=== PATIENT | male | born 1955 | race Caucasian/White ===

== ENCOUNTER 2021-01-05 04:13 | Inpatient (IN) | payer BC ==
[2021-01-04 17:56] VITALS: BMI 27.2
[2021-01-05] MEDS ORDERED: methylPREDNISolone ACET (DEPO) 40 MG/1 ML VIAL ONE (07:42)
[2021-01-05] MEDS ORDERED: BUPIVACAINE HCL/PF 0.5% (5MG/ML) 10 ML VIAL ONE (07:43)
[2021-01-05] MEDS ORDERED: BACITRACIN 15 GM TUBE TOPICAL OINTMENT ONE (07:43)
[2021-01-05] MEDS ORDERED: THROMBIN (BOVINE) 5,000 UNIT VIAL TP ONE (07:43)
[2021-01-05] MEDS ORDERED: PROPOFOL 20 ML ONE ×17 (08:11→13:20)
[2021-01-05] MEDS ORDERED: fentaNYL CITRATE 250 MCG/5 ML VIAL ONE ×2 (08:36→10:43)
[2021-01-05] MEDS ORDERED: SUCCINYLCHOLINE CHLORIDE 200 MG/10 ML SYRINGE ONE (08:37)
[2021-01-05] MEDS ORDERED: ROCURONIUM BROMIDE 50 MG/5 ML SYRINGE ONE (08:37)
[2021-01-05] MEDS ORDERED: MIDAZOLAM HCL 2 MG/2 ML SINGLE DOSE VIAL ONE (08:37)
[2021-01-05] MEDS ORDERED: ceFAZolin SODIUM 1 GM VIAL IVPB ONE ×3 (09:01→13:37)
[2021-01-05] MEDS ORDERED: ePHEDrine SULFATE 50 MG/1 ML AMPULE ONE (10:51)
[2021-01-05] MEDS ORDERED: ONDANSETRON 4 MG/2 ML VIAL ONE (12:43)
[2021-01-05] MEDS ORDERED: ceFAZolin SODIUM 1 GM VIAL ONE ×2 (13:33→21:21)
[2021-01-05] MEDS ORDERED: ONDANSETRON 4 MG/2 ML VIAL IVPUSH PRN (14:08)
[2021-01-05] MEDS ORDERED: oxyCODONE HCL 5 MG TABLET PO PRN (14:08)
[2021-01-05] MEDS ORDERED: LACTATED RINGERS SOLUTION 1,000 ML IV SCH (14:30)
[2021-01-05] MEDS ORDERED: HYDROmorphone *PCA* 10MG/50ML DISP.SYRIN ONE (15:17)
[2021-01-05] MEDS: INSULIN SLIDING SCALE (NOVOLOG) 1 VIAL SQ SCH ×3 (17:30→21:43)
[2021-01-05] MEDS: TAMSULOSIN HCL 0.4 MG CAP PO SCH ×2 (17:45→21:54)
[2021-01-05] MEDS ORDERED: LABETALOL HCL 5 MG/1 ML (100MG/20 ML VIAL) IVPUSH ONE (18:30)
[2021-01-05] MEDS ORDERED: LABETALOL HCL 5 MG/1 ML (100MG/20 ML VIAL) ONE (18:31)
[2021-01-05] MEDS ORDERED: LABETALOL HCL 5 MG/1 ML (100MG/20 ML VIAL) IVPUSH PRN (18:34)
[2021-01-05] MEDS ORDERED: DEXTROSE 5%-WATER - 50 ML IVPB ONE (21:21)
[2021-01-05] MEDS: D5-1/2NS+20 MEQ KCL - 20 MEQ/1,000 ML INFUS.BAG IV SCH (21:33)
[2021-01-05] MEDS: diazePAM 5 MG TABLET PO SCH (21:36)
[2021-01-05] MEDS: CEFAZOLIN 1 GM in DEXTROSE 5%-WATER - 1 GM/50 ML IVPB IVPB SCH (21:36)
[2021-01-05] MEDS: DOCUSATE SODIUM 100 MG CAPSULE (FP) PO SCH (21:36)
[2021-01-05] MEDS: HYDROmorphone *PCA* 10MG/50ML DISP.SYRIN PCA SCH (21:36)
[2021-01-05] MEDS: metFORMIN HCL 500 MG TABLET (FP) PO SCH (21:37)
[2021-01-06] MEDS ORDERED: ceFAZolin SODIUM 1 GM VIAL ONE (05:40)
[2021-01-06] MEDS ORDERED: DEXTROSE 5%-WATER - 50 ML IVPB ONE (05:40)
[2021-01-06] MEDS: CEFAZOLIN 1 GM in DEXTROSE 5%-WATER - 1 GM/50 ML IVPB IVPB SCH (05:40)
[2021-01-06] MEDS: diazePAM 5 MG TABLET PO SCH ×3 (05:57→22:41)
[2021-01-06] MEDS: DOCUSATE SODIUM 100 MG CAPSULE (FP) PO SCH ×3 (05:57→22:41)
[2021-01-06] MEDS: LEVOTHYROXINE NA 50 MCG TABLET (FP) PO SCH (06:01)
[2021-01-06] MEDS: INSULIN SLIDING SCALE (NOVOLOG) 1 VIAL SQ SCH ×4 (06:01→23:36)
[2021-01-06] MEDS: metFORMIN HCL 500 MG TABLET (FP) PO SCH ×2 (06:01→16:21)
[2021-01-06] MEDS: D5-1/2NS+20 MEQ KCL - 20 MEQ/1,000 ML INFUS.BAG IV SCH ×2 (06:54→14:26)
[2021-01-06] MEDS ORDERED: TAMSULOSIN HCL 0.4 MG CAP PO SCH (08:30)
[2021-01-06] MEDS ORDERED: PT OWN MED DRAWER 7, Y5N ONE (09:54)
[2021-01-06] MEDS: LISINOPRIL 10 MG TABLET PO SCH (10:02)
[2021-01-06] MEDS: FENOFIBRIC ACID 135 MG CAP PO SCH (10:03)
[2021-01-06] MEDS: HYDROmorphone *PCA* 10MG/50ML DISP.SYRIN PCA SCH (16:19)
[2021-01-06] MEDS: TAMSULOSIN HCL 0.4 MG CAP PO SCH (16:22)
[2021-01-06] MEDS ORDERED: PCA PUMP NR ONE (18:17)
[2021-01-07] MEDS: D5-1/2NS+20 MEQ KCL - 20 MEQ/1,000 ML INFUS.BAG IV SCH ×2 (00:39→14:32)
[2021-01-07] MEDS: metFORMIN HCL 500 MG TABLET (FP) PO SCH ×2 (06:36→16:38)
[2021-01-07] MEDS: LEVOTHYROXINE NA 50 MCG TABLET (FP) PO SCH (06:36)
[2021-01-07] MEDS: DOCUSATE SODIUM 100 MG CAPSULE (FP) PO SCH ×3 (06:36→21:24)
[2021-01-07] MEDS: diazePAM 5 MG TABLET PO SCH ×4 (06:36→21:24)
[2021-01-07] MEDS: INSULIN SLIDING SCALE (NOVOLOG) 1 VIAL SQ SCH ×4 (06:47→21:34)
[2021-01-07] MEDS ORDERED: DEXAMETHASONE SOD PHOSPHATE 4 MG/1 ML VIAL IVPUSH ONE (07:22)
[2021-01-07] MEDS ORDERED: PT OWN MED DRAWER 7, Y5N ONE ×2 (09:06→16:29)
[2021-01-07] MEDS: FENOFIBRIC ACID 135 MG CAP PO SCH (09:22)
[2021-01-07] MEDS: LISINOPRIL 10 MG TABLET PO SCH (09:22)
[2021-01-07] MEDS ORDERED: INSULIN (NOVOLOG) ASPART 100 UNITS/ML 10ML VIAL ONE (11:21)
[2021-01-07] MEDS: HYDROmorphone *PCA* 10MG/50ML DISP.SYRIN PCA SCH (15:20)
[2021-01-07] MEDS: TAMSULOSIN HCL 0.4 MG CAP PO SCH (16:38)
[2021-01-08] MEDS: LEVOTHYROXINE NA 50 MCG TABLET (FP) PO SCH (07:06)
[2021-01-08] MEDS: metFORMIN HCL 500 MG TABLET (FP) PO SCH ×2 (07:06→16:37)
[2021-01-08] MEDS: DOCUSATE SODIUM 100 MG CAPSULE (FP) PO SCH ×3 (07:06→21:23)
[2021-01-08] MEDS: diazePAM 5 MG TABLET PO SCH ×3 (07:07→21:22)
[2021-01-08] MEDS: INSULIN SLIDING SCALE (NOVOLOG) 1 VIAL SQ SCH ×4 (07:10→21:26)
[2021-01-08] MEDS ORDERED: PT OWN MED DRAWER 7, Y5N ONE (09:15)
[2021-01-08] MEDS: LISINOPRIL 10 MG TABLET PO SCH (09:22)
[2021-01-08] MEDS: FENOFIBRIC ACID 135 MG CAP PO SCH (09:22)
[2021-01-08] MEDS: TAMSULOSIN HCL 0.4 MG CAP PO SCH (16:37)
[2021-01-08] MEDS: oxyCODONE HCL 5 MG TABLET PO PRN (21:22)
[2021-01-09] MEDS: LEVOTHYROXINE NA 50 MCG TABLET (FP) PO SCH (06:53)
[2021-01-09] MEDS: DOCUSATE SODIUM 100 MG CAPSULE (FP) PO SCH ×3 (06:53→21:43)
[2021-01-09] MEDS: diazePAM 5 MG TABLET PO SCH ×3 (06:53→21:43)
[2021-01-09] MEDS: metFORMIN HCL 500 MG TABLET (FP) PO SCH ×2 (06:53→16:27)
[2021-01-09] MEDS: INSULIN SLIDING SCALE (NOVOLOG) 1 VIAL SQ SCH ×4 (06:54→21:43)
[2021-01-09 07:43] LABS: BASO % 0.7 % (0-2.0); EOS % 4.1 % (0-4.5); HEMATOCRIT 42.5 % (35.4-49); HEMOGLOBIN 14.9 GM/dL (11.7-16.9); LYMPH % 23.1 % (8-40); MCH 31.8 pg (25.7-33.7); MCHC 35.1 g/dl (32.0-35.9); MEAN CELL VOLUME 90.6 fl (80-96); MEAN PLT VOLUME 9.2 fl (7.5-11.1); MONO % 7.4 % (3.8-10.2); NEUT % 64.7 % (42.8-82.8); PLATELET COUNT 255 10^3/uL (134-434); RDW 13.9 % (11.9-15.9); WHITE BLOOD COUNT 8.2 K/mm3 (4.0-10.0)
[2021-01-09 08:15] LABS: BLOOD UREA NITROGEN 22.8 mg/dL (7-18)
[2021-01-09] MEDS: LISINOPRIL 10 MG TABLET PO SCH (09:26)
[2021-01-09] MEDS: FENOFIBRIC ACID 135 MG CAP PO SCH (09:26)
[2021-01-09] MEDS: oxyCODONE HCL 5 MG TABLET PO PRN (09:30)
[2021-01-09] MEDS ORDERED: MAGNESIUM CITRATE 300 ML BOTTLE PO PRN (10:06)
[2021-01-09] MEDS: TAMSULOSIN HCL 0.4 MG CAP PO SCH (16:27)
[2021-01-09] MEDS ORDERED: INSULIN (NOVOLOG) ASPART 100 UNITS/ML 10ML VIAL ONE (21:14)
[2021-01-10] MEDS: DOCUSATE SODIUM 100 MG CAPSULE (FP) PO SCH ×3 (06:06→21:35)
[2021-01-10] MEDS: INSULIN SLIDING SCALE (NOVOLOG) 1 VIAL SQ SCH ×4 (06:06→21:35)
[2021-01-10] MEDS: diazePAM 5 MG TABLET PO SCH ×3 (06:06→21:35)
[2021-01-10] MEDS: LEVOTHYROXINE NA 50 MCG TABLET (FP) PO SCH (06:06)
[2021-01-10] MEDS: metFORMIN HCL 500 MG TABLET (FP) PO SCH ×2 (06:06→16:39)
[2021-01-10] MEDS ORDERED: PT OWN MED DRAWER 7, Y5N ONE (09:31)
[2021-01-10] MEDS: FENOFIBRIC ACID 135 MG CAP PO SCH (09:36)
[2021-01-10] MEDS: LISINOPRIL 10 MG TABLET PO SCH (09:36)
[2021-01-10] MEDS ORDERED: INSULIN (NOVOLOG) ASPART 100 UNITS/ML 10ML VIAL ONE ×2 (10:49→21:30)
[2021-01-10] MEDS ORDERED: BISACODYL 5 MG TABLET.DR (FP) PO ONE (12:43)
[2021-01-10] MEDS: TAMSULOSIN HCL 0.4 MG CAP PO SCH (16:39)
[2021-01-11] MEDS: diazePAM 5 MG TABLET PO SCH (06:13)
[2021-01-11] MEDS: DOCUSATE SODIUM 100 MG CAPSULE (FP) PO SCH (06:14)
[2021-01-11] MEDS: LEVOTHYROXINE NA 50 MCG TABLET (FP) PO SCH (06:14)
[2021-01-11] MEDS: metFORMIN HCL 500 MG TABLET (FP) PO SCH (06:15)
[2021-01-11] MEDS: INSULIN SLIDING SCALE (NOVOLOG) 1 VIAL SQ SCH (06:15)
[2021-01-11] MEDS ORDERED: PT OWN MED DRAWER 7, Y5N ONE (09:16)
[2021-01-11] MEDS: LISINOPRIL 10 MG TABLET PO SCH (09:29)
[2021-01-11] MEDS: FENOFIBRIC ACID 135 MG CAP PO SCH (09:29)
[2021-01-11 10:17] VITALS: BP 110/70; PULSE 80; TEMP 97
== END 2021-01-11 11:55 | disposition home or self-care (01) | DRG 472 ==
LOC: J2C 04:13 → J6S 20:05
PROVIDERS: ADMIT Neurological Surgery; ATTEND Neurological Surgery
PROC: 01N10ZZ Release Cervical Nerve, Open Approach (ICD-10-PCS; 2021-01-05)
PROC: 0RB30ZZ Excision of Cervical Vertebral Disc, Open Approach (ICD-10-PCS; 2021-01-05)
PROC: 4A11X4G Monitoring of Peripheral Nervous Electrical Activity, Intraoperative, External Approach (ICD-10-PCS; 2021-01-05)
PROC: 0RG20A0 Fusion of 2 or more Cervical Vertebral Joints with Interbody Fusion Device, Anterior Approach, Anterior Column, Open Approach (ICD-10-PCS; principal; 2021-01-05 08:00)
DX: M48.02 Spinal stenosis, cervical region (principal); M50.00 Cervical disc disorder with myelopathy, unspecified cervical region; M25.78 Osteophyte, vertebrae; I10 Essential (primary) hypertension; E11.9 Type 2 diabetes mellitus without complications
CPT/HCPCS: 36415; 72050-TC-FY; 80051; 82540; 82962; 84520; 85025; 86850; 86900; 86901; 86922; 94010; 94760; 97116-GP; 97162-GP

== ENCOUNTER 2022-01-30 11:25 | Emergency (ER) | payer OTHER ==
[2022-01-30 11:40] VITALS: TEMP 98; BMI 30.8
[2022-01-30] MEDS ORDERED: METOCLOPRAMIDE HCL INJECTION 10 MG/2 ML VIAL IVPB ONE (12:25)
[2022-01-30] MEDS ORDERED: ACETAMINOPHEN 1000 MG/100 ML BAG IVPB ONE (12:25)
[2022-01-30] MEDS ORDERED: METOCLOPRAMIDE HCL INJECTION 10 MG/2 ML VIAL ONE (12:28)
[2022-01-30] MEDS ORDERED: ACETAMINOPHEN INJECTION 100 ML IVPB ONE (12:28)
[2022-01-30 13:00] LABS: BASO % 0.7 % (0-2.0); EOS % 3.6 % (0-4.5); HEMATOCRIT 42.4 % (35.4-49); HEMOGLOBIN 14.9 GM/dL (11.7-16.9); LYMPH % 19.8 % (8-40); MCH 31.5 pg (25.7-33.7); MCHC 35.2 g/dl (32.0-35.9); MEAN CELL VOLUME 89.5 fl (80-96); MEAN PLT VOLUME 9.1 fl (7.5-11.1); MONO % 7.2 % (3.8-10.2); NEUT % 68.7 % (42.8-82.8); PLATELET COUNT 219 10^3/uL (134-434); RBC 4.73 M/mm3 (4.00-5.60); WHITE BLOOD COUNT 6.6 K/mm3 (4.0-10.0)
[2022-01-30 13:38] LABS: BLOOD UREA NITROGEN 22.4 mg/dL (7-18); CALCIUM 8.9 mg/dL (8.5-10.1)
[2022-01-30 13:39] LABS: ALBUMIN 3.6 g/dl (3.4-5.0); MAGNESIUM 1.5 mg/dL (1.8-2.4)
[2022-01-30 13:41] LABS: PHOSPHOROUS 2.6 mg/dL (2.5-4.9)
[2022-01-30 13:43] LABS: BILIRUBIN,TOTAL 0.3 mg/dL (0.2-1); TOT PROT 6.4 g/dl (6.4-8.2)
[2022-01-30] MEDS ORDERED: MAGNESIUM SULF 50% (8.12 MEQ/2 ML-1 GM VIAL) IVPB ONE (13:43)
[2022-01-30] MEDS ORDERED: MAGNESIUM 1GM/D5W - 1 GM/100 ML IVPB IVPB ONE (14:13)
[2022-01-30 15:31] VITALS: BP 179/99; PULSE 63; RESP 15
== END 2022-01-30 15:42 | disposition home or self-care (01) ==
LOC: JER 11:25
PROC: 3E0333Z Introduction of Anti-inflammatory into Peripheral Vein, Percutaneous Approach (ICD-10-PCS; principal; 2022-01-30)
PROC: 3E033GC Introduction of Other Therapeutic Substance into Peripheral Vein, Percutaneous Approach (ICD-10-PCS; 2022-01-30)
PROC: 3E033GC Introduction of Other Therapeutic Substance into Peripheral Vein, Percutaneous Approach (ICD-10-PCS; 2022-01-30)
DX: R51.9 Headache, unspecified (principal); R07.9 Chest pain, unspecified; I10 Essential (primary) hypertension
CPT/HCPCS: 36415; 70450-TC; 71046-TC-FY; 80053; 83735; 84100; 84443; 84484; 85025; 93005; 93010; 99285-25

== ENCOUNTER 2022-08-13 21:51 | Observation (INO) | payer OTHER ==
[2022-08-13] MEDS ORDERED: ASPIRIN 325 MG TABLET PO ONE (23:08)
[2022-08-13] MEDS ORDERED: ASPIRIN 325 MG TABLET ONE (23:17)
[2022-08-13 23:35] LABS: BASO % 0.7 % (0-2.0); EOS % 2.7 % (0-4.5); HEMATOCRIT 41.3 % (35.4-49); HEMOGLOBIN 14.7 GM/dL (11.7-16.9); LYMPH % 13.2 % (8-40); MCH 30.9 pg (25.7-33.7); MCHC 35.6 g/dl (32.0-35.9); MEAN CELL VOLUME 86.9 fl (80-96); MEAN PLT VOLUME 8.7 fl (7.5-11.1); MONO % 6.6 % (3.8-10.2); NEUT % 76.8 % (42.8-82.8); PLATELET COUNT 225 10^3/uL (134-434); RBC 4.76 M/mm3 (4.00-5.60); RDW 14.3 % (11.9-15.9); WHITE BLOOD COUNT 9.4 K/mm3 (4.0-10.0)
[2022-08-13 23:43] LABS: INR 1.08 (0.83-1.09); PROTHROMBIN TIME (PATIENT) 12.5 SEC (9.7-13.0)
[2022-08-13 23:45] LABS: ACTIVATED PTT 29.4 SECONDS (25.2-36.5)
[2022-08-14 00:09] LABS: CALCIUM 9.1 mg/dL (8.5-10.1)
[2022-08-14 00:10] LABS: ALBUMIN 3.6 g/dl (3.4-5.0); BLOOD UREA NITROGEN 30.2 mg/dL (7-18)
[2022-08-14 00:13] LABS: CREATININE 1.3 mg/dL (0.55-1.3)
[2022-08-14 00:14] LABS: TOT PROT 6.7 g/dl (6.4-8.2)
[2022-08-14 00:15] LABS: BILIRUBIN,TOTAL 0.2 mg/dL (0.2-1)
[2022-08-14 06:44] LABS: CHOLESTEROL 148 mg/dL (50-200)
[2022-08-14 06:45] LABS: CALCIUM 9.1 mg/dL (8.5-10.1)
[2022-08-14 06:46] LABS: ALBUMIN 3.6 g/dl (3.4-5.0); BLOOD UREA NITROGEN 27.2 mg/dL (7-18); LDL CHOLESTEROL (ONLY SJRH) 89 mg/dL (5-100); MAGNESIUM 1.5 mg/dL (1.8-2.4)
[2022-08-14 06:47] LABS: HDL CHOLESTEROL 21 mg/dL (40-60)
[2022-08-14 06:49] LABS: CREATININE 1.1 mg/dL (0.55-1.3); PHOSPHOROUS 3.1 mg/dL (2.5-4.9)
[2022-08-14 06:50] LABS: BASO % 0.6 % (0-2.0); BILIRUBIN,TOTAL 0.4 mg/dL (0.2-1); EOS % 3.4 % (0-4.5); HEMATOCRIT 40.6 % (35.4-49); HEMOGLOBIN 14.4 GM/dL (11.7-16.9); LYMPH % 18.2 % (8-40); MCH 31.1 pg (25.7-33.7); MCHC 35.5 g/dl (32.0-35.9); MEAN CELL VOLUME 87.8 fl (80-96); MEAN PLT VOLUME 8.9 fl (7.5-11.1); MONO % 6.5 % (3.8-10.2); NEUT % 71.3 % (42.8-82.8); PLATELET COUNT 208 10^3/uL (134-434); RBC 4.62 M/mm3 (4.00-5.60); RDW 14.2 % (11.9-15.9); TOT PROT 6.7 g/dl (6.4-8.2); WHITE BLOOD COUNT 8.8 K/mm3 (4.0-10.0)
[2022-08-14] MEDS ORDERED: LEVOTHYROXINE NA 50 MCG TABLET (FP) PO SCH (07:00)
[2022-08-14] MEDS ORDERED: METOPROLOL TARTRATE 25 MG TABLET (FP) ONE (08:08)
[2022-08-14] MEDS ORDERED: LISINOPRIL 20 MG TABLET ONE (08:08)
[2022-08-14] MEDS ORDERED: LEVOTHYROXINE NA 50 MCG TABLET (FP) ONE (08:09)
[2022-08-14] MEDS ORDERED: TAMSULOSIN HCL 0.4 MG CAP ONE (08:09)
[2022-08-14] MEDS ORDERED: ENOXAPARIN NA (PORCINE) 40 MG/0.4 ML DISP.SYRIN SQ ONE (08:09)
[2022-08-14] MEDS: INSULIN SLIDING SCALE (NOVOLOG) 1 VIAL SQ SCH ×4 (08:11→22:47)
[2022-08-14] MEDS ORDERED: TAMSULOSIN HCL 0.4 MG CAP PO SCH (08:30)
[2022-08-14] MEDS: LISINOPRIL 20 MG TABLET PO SCH ×2 (09:30→22:30)
[2022-08-14] MEDS: METOPROLOL TARTRATE 25 MG TABLET (FP) PO SCH ×2 (09:30→22:30)
[2022-08-14] MEDS ORDERED: ENOXAPARIN NA (PORCINE) 40 MG/0.4 ML DISP.SYRIN SQ SCH (10:00)
[2022-08-14] MEDS ORDERED: FENOFIBRIC ACID 135 MG CAP PO SCH (10:00)
[2022-08-14] MEDS: GABAPENTIN 100 MG CAPSULE PO SCH ×2 (13:20→22:30)
[2022-08-14] MEDS: CYCLOBENZAPRINE HCL 5 MG TABLET PO SCH ×2 (15:30→22:30)
[2022-08-14] MEDS ORDERED: LIDOCAINE 5% TOPICAL PATCH ONE (16:11)
[2022-08-14] MEDS ORDERED: CYCLOBENZAPRINE HCL 5 MG TABLET ONE (16:11)
[2022-08-14] MEDS: LIDOCAINE 5% TOPICAL PATCH TP SCH (16:40)
[2022-08-14] MEDS: LIDOCAINE PATCH REMOVAL MC SCH (22:00)
[2022-08-15 05:22] VITALS: BMI 27.9
[2022-08-15] MEDS: CYCLOBENZAPRINE HCL 5 MG TABLET PO SCH ×3 (05:51→21:41)
[2022-08-15] MEDS: GABAPENTIN 100 MG CAPSULE PO SCH ×3 (05:51→21:41)
[2022-08-15] MEDS: LEVOTHYROXINE NA 50 MCG TABLET (FP) PO SCH (06:58)
[2022-08-15] MEDS: INSULIN SLIDING SCALE (NOVOLOG) 1 VIAL SQ SCH ×4 (06:58→21:44)
[2022-08-15] MEDS: TAMSULOSIN HCL 0.4 MG CAP PO SCH (11:40)
[2022-08-15] MEDS: LISINOPRIL 20 MG TABLET PO SCH ×2 (11:40→21:40)
[2022-08-15] MEDS: LIDOCAINE 5% TOPICAL PATCH TP SCH (11:41)
[2022-08-15] MEDS: METOPROLOL TARTRATE 25 MG TABLET (FP) PO SCH ×2 (11:41→21:41)
[2022-08-15] MEDS: FENOFIBRIC ACID 135 MG CAP PO SCH (11:41)
[2022-08-15] MEDS: ENOXAPARIN NA (PORCINE) 40 MG/0.4 ML DISP.SYRIN SQ SCH (12:54)
[2022-08-15] MEDS: ACETAMINOPHEN 325 MG TABLET (FP) PO SCH ×2 (15:56→21:41)
[2022-08-15] MEDS ORDERED: KETOROLAC TROMETHAMINE 15 MG/ML VIAL IVPUSH PRN (17:01)
[2022-08-15] MEDS ORDERED: INSULIN (NOVOLOG) ASPART 100 UNITS/ML 10ML VIAL ONE (21:39)
[2022-08-15] MEDS: LIDOCAINE PATCH REMOVAL MC SCH (22:15)
[2022-08-15 23:00] VITALS: RESP 20
[2022-08-16] MEDS: ACETAMINOPHEN 325 MG TABLET (FP) PO SCH ×2 (03:06→10:42)
[2022-08-16] MEDS: GABAPENTIN 100 MG CAPSULE PO SCH (06:45)
[2022-08-16] MEDS: LEVOTHYROXINE NA 50 MCG TABLET (FP) PO SCH (06:45)
[2022-08-16] MEDS: CYCLOBENZAPRINE HCL 5 MG TABLET PO SCH (06:45)
[2022-08-16] MEDS: INSULIN SLIDING SCALE (NOVOLOG) 1 VIAL SQ SCH ×2 (06:46→12:25)
[2022-08-16 08:52] LABS: BASO % 0.2 % (0-2.0); EOS % 2.8 % (0-4.5); HEMATOCRIT 39.5 % (35.4-49); HEMOGLOBIN 13.9 GM/dL (11.7-16.9); LYMPH % 13.6 % (8-40); MCH 30.9 pg (25.7-33.7); MCHC 35.2 g/dl (32.0-35.9); MEAN CELL VOLUME 87.8 fl (80-96); MEAN PLT VOLUME 8.9 fl (7.5-11.1); MONO % 8.5 % (3.8-10.2); NEUT % 74.9 % (42.8-82.8); PLATELET COUNT 194 10^3/uL (134-434); RDW 14.1 % (11.9-15.9); WHITE BLOOD COUNT 8.1 K/mm3 (4.0-10.0)
[2022-08-16 09:10] LABS: CALCIUM 8.9 mg/dL (8.5-10.1)
[2022-08-16 09:11] LABS: ALBUMIN 3.3 g/dl (3.4-5.0); BLOOD UREA NITROGEN 22.7 mg/dL (7-18); MAGNESIUM 1.8 mg/dL (1.8-2.4)
[2022-08-16 09:15] LABS: BILIRUBIN,TOTAL 0.6 mg/dL (0.2-1); TOT PROT 6.2 g/dl (6.4-8.2)
[2022-08-16] MEDS ORDERED: traMADol HCL 50 MG TABLET PO ONE (10:10)
[2022-08-16] MEDS: TAMSULOSIN HCL 0.4 MG CAP PO SCH (10:42)
[2022-08-16] MEDS: FENOFIBRIC ACID 135 MG CAP PO SCH (10:43)
[2022-08-16] MEDS: LISINOPRIL 20 MG TABLET PO SCH (10:44)
[2022-08-16] MEDS: METOPROLOL TARTRATE 25 MG TABLET (FP) PO SCH (10:44)
[2022-08-16] MEDS: ENOXAPARIN NA (PORCINE) 40 MG/0.4 ML DISP.SYRIN SQ SCH (10:44)
[2022-08-16] MEDS: LIDOCAINE 5% TOPICAL PATCH TP SCH (10:45)
[2022-08-16] MEDS ORDERED: INSULIN (NOVOLOG) ASPART 100 UNITS/ML 10ML VIAL ONE (12:06)
[2022-08-16 14:37] VITALS: BP 160/90; PULSE 85; TEMP 98.9
== END 2022-08-16 14:37 | disposition home or self-care (01) ==
LOC: JER 21:51 → JERBED 08-14 02:58 → INTOOBSV 08-14 02:58 → J8W 08-14 20:39
PROVIDERS: ADMIT Internal Medicine; ATTEND Nurse Practitioner Family
PROC: 3E013VG Introduction of Insulin into Subcutaneous Tissue, Percutaneous Approach (ICD-10-PCS; principal; 2022-08-14)
PROC: 3E0333Z Introduction of Anti-inflammatory into Peripheral Vein, Percutaneous Approach (ICD-10-PCS; 2022-08-14)
DX: R91.1 Solitary pulmonary nodule (principal); E03.9 Hypothyroidism, unspecified; R07.9 Chest pain, unspecified; N40.0 Benign prostatic hyperplasia without lower urinary tract symptoms; E78.00 Pure hypercholesterolemia, unspecified; J98.11 Atelectasis; R12 Heartburn
CPT/HCPCS: 0241U-QW; 36415; 71045-TC-FY; 71275-TC; 74174-TC; 80053; 80061; 82962; 83036; 83735; 84100; 84153; 84443; 84484; 85025; 85379; 85610; 85730; 93005; 93010; 93306-TC; 93970-TC; 94010; 96372; 96374; 99285-25; G0378; Q9967

== ENCOUNTER 2024-01-11 16:01 | Emergency (ER) | payer OTHER ==
[2024-01-11 16:17] VITALS: RESP 18; TEMP 97.7; BMI 23.0
[2024-01-11 18:10] LABS: EOS % 4.8 % (0-4.5); HEMATOCRIT 35.3 % (35.4-49); HEMOGLOBIN 11.9 GM/dL (11.7-16.9); LYMPH % 20.8 % (8-40); MCH 30.1 pg (25.7-33.7); MCHC 33.6 g/dl (32.0-35.9); MEAN CELL VOLUME 89.7 fl (80-96); MEAN PLT VOLUME 8.6 fl (7.5-11.1); MONO % 6.7 % (3.8-10.2); NEUT % 66.7 % (42.8-82.8); PLATELET COUNT 202 10^3/uL (134-434); RBC 3.93 M/mm3 (4.00-5.60); WHITE BLOOD COUNT 5.7 K/mm3 (4.0-10.0)
[2024-01-11 18:35] LABS: POTASSIUM 5.6 mmol/L (3.5-5.1)
[2024-01-11 18:37] LABS: ALBUMIN 3.8 g/dl (3.4-5.0); CALCIUM 9.3 mg/dL (8.5-10.1)
[2024-01-11 18:38] LABS: BLOOD UREA NITROGEN 43.4 mg/dL (7-18); MAGNESIUM 1.5 mg/dL (1.8-2.4)
[2024-01-11 18:41] LABS: CREATININE 1.3 mg/dL (0.55-1.3); PHOSPHOROUS 3.3 mg/dL (2.5-4.9)
[2024-01-11 18:42] LABS: BILIRUBIN,TOTAL 0.2 mg/dL (0.2-1); TOT PROT 6.7 g/dl (6.4-8.2)
[2024-01-11] MEDS ORDERED: MAGNESIUM SULF 50% (8.12 MEQ/2 ML-1 GM VIAL) ONE (19:12)
[2024-01-11] MEDS ORDERED: CALCIUM GLUCONATE 10% - 1,000 MG/10 ML VIAL ONE (19:12)
[2024-01-11] MEDS ORDERED: CALCIUM GLUC IN NACL, ISO-OSM 1 GM/50 ML BAG IVPB ONE (19:23)
[2024-01-11] MEDS ORDERED: INSULIN REGULAR HUMAN 100 UNITS/ML *VIAL ONE ×2 (19:27)
[2024-01-11] MEDS ORDERED: DEXTROSE 50%-WATER 25 GM/50 ML DISP.SYRIN ONE ×2 (19:30→19:39)
[2024-01-11] MEDS ORDERED: FUROSEMIDE 40 MG/4 ML INJECTABLE VIAL ONE (19:33)
[2024-01-11] MEDS: MAGNESIUM SULF 50% (8.12 MEQ/2 ML-1 GM VIAL) IVPB ONE (20:03)
[2024-01-11] MEDS: DEXTROSE 50%-WATER - 25 GM/50 ML VIAL IVPUSH ONE (20:04)
[2024-01-11] MEDS: FUROSEMIDE 40 MG/4 ML INJECTABLE VIAL IVPUSH ONE (20:04)
[2024-01-11] MEDS: INSULIN REGULAR HUMAN 100 UNITS/ML *VIAL IVPUSH ONE (20:04)
[2024-01-11] MEDS: CALCIUM GLUC IN NACL, ISO-OSM 1 GM/50 ML BAG IVPB ONE (20:04)
[2024-01-11] MEDS: LACTATED RINGERS SOLUTION 1000 ML INFUS.BAG IV ONE (20:04)
[2024-01-11] MEDS: SODIUM CHLORIDE 0.9% 500 ML INFUS.BAG IV ONE (20:22)
[2024-01-11 21:06] VITALS: BP 147/76; PULSE 65
[2024-01-11 22:04] LABS: POTASSIUM 4.8 mmol/L (3.5-5.1)
[2024-01-11 22:05] LABS: BLOOD UREA NITROGEN 40.1 mg/dL (7-18); CALCIUM 9.3 mg/dL (8.5-10.1)
[2024-01-11 22:09] LABS: CREATININE 1.3 mg/dL (0.55-1.3)
== END 2024-01-11 23:00 | disposition home or self-care (01) ==
LOC: JER 16:01
PROC: 3E033GC Introduction of Other Therapeutic Substance into Peripheral Vein, Percutaneous Approach (ICD-10-PCS; principal; 2024-01-11)
PROC: 3E033GC Introduction of Other Therapeutic Substance into Peripheral Vein, Percutaneous Approach (ICD-10-PCS; 2024-01-11)
PROC: 3E033GC Introduction of Other Therapeutic Substance into Peripheral Vein, Percutaneous Approach (ICD-10-PCS; 2024-01-11)
PROC: 3E033GC Introduction of Other Therapeutic Substance into Peripheral Vein, Percutaneous Approach (ICD-10-PCS; 2024-01-11)
PROC: 3E033GC Introduction of Other Therapeutic Substance into Peripheral Vein, Percutaneous Approach (ICD-10-PCS; 2024-01-11)
DX: E87.5 Hyperkalemia (principal); R53.1 Weakness
CPT/HCPCS: 36415; 80048; 80053; 82962; 83735; 84100; 85025; 93005; 93010; 96365; 96375; 99284-25